=== PATIENT | male | born 1960 | race Caucasian/White ===

== ENCOUNTER 2016-09-07 16:10 | Emergency (ER) | payer MEDICARE, OTHER ==
[~2016-09-07] VITALS: Ht 182.9 cm; Wt 85.0 kg
[~2016-09-07 16:10] MED LIST: AMLO10 PO; CATA0.2D T-DERMAL; FENT25DI T-DERMAL; HYDRA25 PO; LORTA5 PO; TEMA7.5 PO; WARF6 PO
[2016-09-07 16:32] VITALS: BP 179/92; PULSE 100; RESP 14; TEMP 98.9; O2SAT 95
[2016-09-07] MEDS ORDERED: HYDR25TA35 PO (16:36)
[2016-09-07] MEDS ORDERED: ESCI5TAB PO (16:36)
[2016-09-07] MEDS ORDERED: MECL12.574 PO (16:36)
[2016-09-07] MEDS ORDERED: NORC5TAB PO (16:36)
[2016-09-07] MEDS ORDERED: WARF-23 PO (16:36)
[2016-09-07 17:33] LABS: AUTOMATED NEUTROPHIL # 7.3 TH/MM3 (1.8-7.7); BASOPHIL % 0.3 % (0.0-2.0); EOSINOPHIL # 0.1 TH/MM3 (0-0.4); HEMATOCRIT 44.6 % (39.0-51.0); HEMO FLAGS DIFF FINAL; LYMPH % 17.6 % (9.0-44.0); LYMPHOCYTE # 1.7 TH/MM3 (1.0-4.8); MEAN CELL VOLUME 105.4 FL (80.0-100.0); MEAN CORPUSCULAR HEMOGLOBIN 36.6 PG (27.0-34.0); MEAN CORPUSCULAR HGB CONC 34.7 % (32.0-36.0); MONO % 5.8 % (0.0-8.0); NEUT % 75.3 % (16.0-70.0); PLATELET COUNT 154 TH/MM3 (150-450); RED BLOOD COUNT 4.23 MIL/MM3 (4.50-5.90); RED CELL DISTRIBUTION WIDTH 14.8 % (11.6-17.2); WHITE BLOOD COUNT 9.6 TH/MM3 (4.0-11.0)
--- NOTE | 2016-09-07 17:33 | PD ---
HPI Chief Complaint: Medical Clearance Time Seen by Provider: 17:14 Travel History International Travel<30 days: No Contact w/Intl Traveler<30days: No Traveled to known affect area: No History of Present Illness HPI 56-year-old male presents to the emergency room [facility] as an ex parte initiated by his significant other. [facility] was unable to accept the patient because he is on Coumadin. According to ex parte, patient is violent and has difficulty distinguishing reality and patient gets combative with his significant other. In the past but being unsuccessful due to insurance reasons. According to her, patient has expressed suicidal ideation and has severe mood swings and depression where he refuses to shower or eat. He denies suicidal or homicidal ideation at this time. Denies hallucinations and delusions. Patient denies any acute physical complaints at this time. Reports history of hypertension. Medication list includes meclizine, hydralazine, Lexapro, and warfarin. 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 PFSH Past Medical History Arthritis: No Asthma: No Autoimmune Disease: No Anxiety: Yes Depression: Yes Heart Rhythm Problems: No Cancer: No Cardiovascular Problems: Yes High Cholesterol: No Chest Pain: Yes Congestive Heart Failure: No COPD: No Cerebrovascular Accident: No Diabetes: No Endocrine: No GERD: Yes Gout: Yes Genitourinary: No Hiatal Hernia: No Hypertension: Yes Immune Disorder: No Musculoskeletal: Yes (betty pelvic fx; rbis fx 2012) Neurologic: Yes (West Nile Virus) Psychiatric: Yes Reproductive: No Respiratory: Yes ("spot on lung" 03/2015) Migraines: Yes (as child) Seizures: Yes (possibly) Sleep Apnea: Yes Thyroid Disease: No Ulcer: No Past Surgical History Abdominal Surgery: Yes (hernia repair - January 2015) Cardiac Surgery: No Ear Surgery: No Endocrine Surgery: No Eye Surgery: No Genitourinary Surgery: No Gynecologic Surgery: No Oral Surgery: No Thoracic Surgery: No Other Surgery: No Social History Alcohol Use: Yes (BINGES X 2 DAYS) Tobacco Use: Yes (2 PPD) Substance Use: No Allergies-Medications (Allergen,Severity, Reaction): Coded Allergies: Bactrim (Verified Allergy, Intermediate, SHAKING, 06/03/15) *MDRO Multi-Drug Resistant Organism (Verified Adverse Reaction, Unknown, 11/3/15) 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 Reported Meds & Prescriptions Reported Meds & Active Scripts Active Reported Escitalopram (Escitalopram Oxalate) 5 Mg Tab Unknown Dose PO DAILY Warfarin 5 Mg Tab Unknown Dose PO DAILY Olivia (Hydrocodone-Acetaminophen) 5-325 mg Tab Unknown Dose PO Q4H PRN Hydralazine (Hydralazine HCl) 25 Mg Tab Unknown Dose PO BID Take with a meal Meclizine (Meclizine HCl) 12.5 Mg Tab Unknown Dose PO DAILY PRN Review of Systems Except as stated in HPI: all other systems reviewed are Neg Physical Exam Narrative GENERAL: Well-nourished, well-developed male in no acute distress. Afebrile. Ambulatory. SKIN: Warm and dry. HEAD: Normocephalic. EYES: No scleral icterus. No injection or drainage. NECK: Supple, trachea midline. No JVD or lymphadenopathy. CARDIOVASCULAR: Regular rate and rhythm without murmurs, gallops, or rubs. RESPIRATORY: Breath sounds equal bilaterally. No accessory muscle use. PSYCHIATRIC: No delusional thought processes. No hallucinations. Normal mood and affect. Data Data Last Documented VS Vital Signs Date Time Temp Pulse Resp B/P Pulse Ox O2 Delivery O2 Flow Rate FiO2 09/07/16 19:00 169/87 09/07/16 16:32 98.9 100 14 95 Orders Complete Blood Count With Diff (09/07/16 17:04) Basic Metabolic Panel (Bmp) (09/07/16 17:04) Drug Screen, Random Urine (09/07/16 17:04) Alcohol (Ethanol) (09/07/16 17:04) Psych Screen (09/07/16 17:04) Hydralazine (Apresoline) (09/07/16 18:30) Labs Laboratory Tests Test 09/07/16 09/07/16 17:18 19:15 White Blood Count 9.6 TH/MM3 Red Blood Count 4.23 MIL/MM3 Hemoglobin 15.5 GM/DL Hematocrit 44.6 % Mean Corpuscular Volume 105.4 FL Mean Corpuscular Hemoglobin 36.6 PG Mean Corpuscular Hemoglobin 34.7 % Concent Red Cell Distribution Width 14.8 % Platelet Count 154 TH/MM3 Mean Platelet Volume 8.5 FL Neutrophils (%) (Auto) 75.3 % Lymphocytes (%) (Auto) 17.6 % Monocytes (%) (Auto) 5.8 % Eosinophils (%) (Auto) 1.0 % Basophils (%) (Auto) 0.3 % Neutrophils # (Auto) 7.3 TH/MM3 Lymphocytes # (Auto) 1.7 TH/MM3 Monocytes # (Auto) 0.6 TH/MM3 Eosinophils # (Auto) 0.1 TH/MM3 Basophils # (Auto) 0.0 TH/MM3 CBC Comment DIFF FINAL Differential Comment Sodium Level 137 MEQ/L Potassium Level 4.1 MEQ/L Chloride Level 106 MEQ/L Carbon Dioxide Level 20.3 MEQ/L Anion Gap 11 MEQ/L Blood Urea Nitrogen 26 MG/DL Creatinine 1.16 MG/DL Estimat Glomerular Filtration 65 ML/MIN Rate Random Glucose 93 MG/DL Calcium Level 8.9 MG/DL Ethyl Alcohol Level LESS THAN 3 MG/DL Urine Opiates Screen POS Urine Barbiturates Screen NEG Urine Amphetamines Screen NEG Urine Benzodiazepines Screen NEG Urine Cocaine Screen NEG Urine Cannabinoids Screen NEG MDM Medical Decision Making Medical Screen Exam Complete: Yes Emergency Medical Condition: Yes Medical Record Reviewed: Yes Differential Diagnosis Drug-induced mood disorder versus suicidal ideation versus West Nile encephalopathy Narrative Course 56-year-old male presents to the emergency room under an ex parte initiated by his . According to ex parte, patient is occasionally violent, self harming , and unable to the distinguish reality. 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 [facility] but they were unable to accept him because he is on Coumadin. CBC and BMP are unremarkable. Alcohol is negative. Drug screen is only positive for opiates. Patient denies medical complaints at this time. Blood pressure mildly elevated, patient given hydralazine. Patient is medically cleared for psychiatric evaluation and disposition at this time. Diagnosis Primary Impression: Medical clearance for psychiatric admission Condition: Stable Beryl Nj Sep 07, 2016 17:33
[2016-09-07 18:04] LABS: ANION GAP 11 MEQ/L (5-15); BICARBONATE 20.3 MEQ/L (21.0-32.0); BLOOD UREA NITROGEN 26 MG/DL (7-18); CHLORIDE 106 MEQ/L (98-107); GLOMERULAR FILTRATION RATE 65 ML/MIN (>89); POTASSIUM 4.1 MEQ/L (3.5-5.1); SODIUM (NA) 137 MEQ/L (136-145)
[2016-09-07] MEDS ORDERED: hydrALAZINE HCL 10 MG TAB PO ONE (18:30)
[2016-09-07 19:00] VITALS: BP 169/87
[2016-09-07 20:15] LABS: AMPHETAMINE, URINE NEG (NEG); BARBITURATES, URINE NEG (NEG); COCAINE, URINE NEG (NEG)
[2016-09-07 21:03] VITALS: BP 159/92; PULSE 97; RESP 18; O2SAT 97
[2016-09-07 22:00] VITALS: BP 139/68; PULSE 79; RESP 18; O2SAT 99
[2016-09-08 02:14] VITALS: BP 149/87; PULSE 91; RESP 18; O2SAT 97
[2016-09-08 06:14] VITALS: BP 137/79; PULSE 87; RESP 17; O2SAT 100
[2016-09-08 10:54] VITALS: BP 148/89; PULSE 85; RESP 20; O2SAT 97
[2016-09-08 13:40] VITALS: BP 164/91; PULSE 82; RESP 18; O2SAT 96
--- NOTE | 2016-09-08 15:10 | PD.CONS ---
Provisional Diagnosis Admission Date Marlette I. Alcohol-induced mood disorder, alcohol use disorder, rule out depression Marlette II. Deferred History of Present Illness Service Psychiatry Consult Requested By Primary Care Physician Non-Staff HPI The patient is a 56-year-old man, domiciled with his , disabled, without any previous significant psychiatric history, no previous suicidal attempts, no previous psychotic hospitalizations, with medical history of West Nile Virus several years ago, who presents to the emergency [facility] as an ex parte initiated by his significant other. [facility] was unable to accept the patient because he is on Coumadin. According to ex parte, patient is violent and has difficulty distinguishing reality and patient gets combative with his significant other. In the past but being unsuccessful due to insurance reasons. According to her, patient has expressed suicidal ideation and has severe mood swings and depression where he refuses to shower or eat. Patient was seen for psychiatric evaluation in the [facility], patient was calm, cooperative and pleasant. Patient explains that the reason he is here is because he has been having frequent argument with his . He says that he also has been drinking a lot of alcohol. But he reports good mood, he denies depressive symptoms, he denies anxiety, he denies manic symptoms, he denies psychosis, he denies suicidal or homicidal ideation, he denies visual and auditory hallucinations. Patient states that because he has been having argument with his , his live usually called the police and they come home, they finding drunk and then they bring him to the ER. During the presence of the patient in the ER no agitation, aggressive behavior, bizarre behavior at this progression observer reported. Patient is oriented 3. He reports almost everyday use of marijuana, toward 3 times per day 2 or 3 drinks of alcohol. Review of Systems Constitutional: DENIES: Diaphoretic episodes, Fatigue, Fever, Weight gain, Weight loss, Chills, Dizziness, Change in appetite, Night Sweats Endocrine: DENIES: Heat/cold intolerance, Polydipsia, Polyuria, Polyphagia Eyes: DENIES: Blurred vision, Diplopia, Eye inflammation, Eye pain, Vision loss , Photosensitivity, Double Vision Ears, nose, mouth, throat: DENIES: Tinnitus, Hearing loss, Vertigo, Nasal discharge, Oral lesions, Throat pain, Hoarseness, Ear Pain, Running Nose, Epistaxis, Sinus Pain, Toothache, Odynophagia Respiratory: DENIES: Apneas, Cough, Snoring, Wheezing, Hemoptysis, Sputum production, Shortness of breath Cardiovascular: DENIES: Chest pain, Palpitations, Syncope, Dyspnea on Exertion , PND, Lower Extremity Edema, Orthopnea, Claudication Genitourinary: DENIES: Sexual dysfunction, Urinary frequency, Urinary incontinence, Urgency, Hematuria, Dysuria, Nocturia, Penile Discharge, Testicular Pain, Testicular Swelling Musculoskeletal: DENIES: Joint pain, Muscle aches, Stiffness, Joint Swelling, Back pain, Neck pain Integumentary: DENIES: Abnormal pigmentation, Nail changes, Pruritus, Rash Hematologic/lymphatic: DENIES: Bruising, Lymphadenopathy Neurologic: DENIES: Abnormal gait, Headache, Localized weakness, Paresthesias, Seizures, Speech Problems, Tremor, Poor Balance Past Family Social History Coded Allergies: Bactrim (Verified Allergy, Intermediate, SHAKING, 06/03/15) *MDRO Multi-Drug Resistant Organism (Verified Adverse Reaction, Unknown, 06/03/15) 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 Reported Medications Escitalopram 5 Mg TabUnknown Dose PO DAILY #30 TAB Ref 0 09/07/16 Warfarin 5 Mg TabUnknown Dose PO DAILY #30 TAB Ref 0 09/07/16 Hydrocodone-Acetaminophen ([place])5-325 mg TabUnknown Dose PO Q4H PRN (PAIN) Ref 0 09/07/16 Hydralazine 25 Mg TabUnknown Dose PO BID #60 TAB Ref 0 Take with a meal 09/07/16 Meclizine 12.5 Mg TabUnknown Dose PO DAILY PRN (VERTIGO) Ref 0 09/07/16 Family History He denies Social History Patient was born and raised in [place], he has been living in [place] since 1971, he lives with his in [facility], he is unemployed, supported by disability benefits, his highest level of education is 13 grade. Physical Exam Vital Signs Vital Signs Date Time Temp Pulse Resp B/P Pulse Ox O2 Delivery O2 Flow Rate FiO2 09/08/16 13:40 82 18 164/91 96 Room Air 09/07/16 16:32 98.9 Mental Status Examination Appearance man, who appears older than his stated age, good hygiene, [facility], he is calm, cooperative and pleasant Speech: Unremarkable Orientation: x3 Thought Process: Logical Thought Content: Unremarkable Suicidal Ideation: No Previous Suicide Attempts: No Homicidal Ideation: No Judgement: WNL Affect: Good Mood: Appropriate Motor Activity: Normal gait Assessment & Plan Problem List: (1) Alcohol abuse with intoxication Assessment & Plan: Patient does not meet criteria for psychiatric admission at this moment, patient is not depressed, not anxious, patient denies suicidal or homicidal ideation, patient doesn't present any symptomatology of louise, or psychosis, patient denies visual and auditory hallucinations, on longitudinal observation patient has been calm, cooperative and pleasant. No agitation, no aggressive behavior observed or reported. Webb act will be lifted. Motivation , supportive psycho education provided. ICD Code: F10.129 Assessment & Plan Estimated LOS: Ervin Barbosa MD Sep 08, 2016 15:10
== END 2016-09-08 15:11 | disposition home or self-care (01) ==
LOC: NEDAMB 16:10 → NEPJ 09-08 15:11
DX: F10.94 Alcohol use, unspecified with alcohol-induced mood disorder (principal); I10 Essential (primary) hypertension; G47.30 Sleep apnea, unspecified; F17.210 Nicotine dependence, cigarettes, uncomplicated; Z79.01 Long term (current) use of anticoagulants
CPT/HCPCS: 80048; 80307; 80320; 85025; 99284